=== PATIENT | female | born 1950 ===

== ENCOUNTER 2022-06-26 12:30 | Inpatient (IN) | payer OTHER ==
[~2022-06-26] VITALS: Ht 160 cm; Wt 49.9 kg
[2022-06-26] MEDS ORDERED: ZOLOFT100 MG PO (13:40)
[2022-06-28] MEDS ORDERED: ROSUVASTATIN CA20 MG (08:05)
[2022-06-28] MEDS ORDERED: FAMOTIDINE40 MG (08:05)
[2022-07-02] MEDS ORDERED: AMOX1TAB5 PO (12:21)
[2022-07-02] MEDS ORDERED: OMEPRAZOLE20 MG PO (12:21)
[2022-07-02] MEDS ORDERED: INTESTINEX680 M1 PO (12:21)
== END 2022-07-02 16:44 | disposition home or self-care (01) | DRG 330 ==
LOC: SURH 06-28 06:24 → O/R 06-28 06:24 → SURG 06-28 10:15 → SURH 06-28 11:20 → SURG 06-28 12:30 → SURH 07-02 16:44
PROVIDERS: ADMIT Surgery; ATTEND Surgery
PROC: 0DTN4ZZ Resection of Sigmoid Colon, Percutaneous Endoscopic Approach (ICD-10-PCS; 2022-06-28)
PROC: 0DBP4ZZ Excision of Rectum, Percutaneous Endoscopic Approach (ICD-10-PCS; principal; 2022-06-28 10:15)
DX: K57.20 Diverticulitis of large intestine with perforation and abscess without bleeding (principal); N32.1 Vesicointestinal fistula; R10.32 Left lower quadrant pain; D12.6 Benign neoplasm of colon, unspecified; K59.09 Other constipation; Z20.822 Contact with and (suspected) exposure to COVID-19